=== PATIENT | male | born 1995 | race Caucasian/White ===

== ENCOUNTER 2025-11-01 21:34 | Emergency (ER) | payer OTHER, SELFPAY ==
[2025-11-01 21:35] VITALS: BP 138/89
--- NOTE | 2025-11-01 22:07 | ED.GENMED ---
History of Present Illness
<Floyd Godfrey MD, Resident - Last Filed: 11/02/25 01:17>
General
Chief Complaint: Musculo-Skeletal Complaint
Time Seen by Provider: 11/01/25 22:04
History of Present Illness
History of Present Illness:
30 yo M no significant PMH p/w focal tailbone pain for 3 weeks duration. no clear trigger. pain is exacerbated by when applying pressure to that focal point or when he sits in a weird way. otherwise, no pain. denies shooting pain down legs, focal
numbness or weakness. denies bowel/bladder dysfunction, denies saddle anesthesia.
he went to urgent care ~2 weeks ago, completed 7 days of doxycycline to no avail. he tried advil at home with minimal benefit.
no trauma, no falls. no changes to his typical routine. 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
denies any changes or blood in stool. denies any recent illnesses or sick contacts.
social hx unremarkable
Past History
<Floyd Godfrey MD, Resident - Last Filed: 11/02/25 01:17>
Past History
ED Past Medical History: None
ED Past Surgical History: Other (Mcdonough teeth removal)
Social History
Tobacco: Non-smoker
Alcohol: None
Drug: None
Personal:
Living: with family
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
Review of Systems
<Floyd Godfrey MD, Resident - Last Filed: 11/02/25 01:17>
Review of Systems
Constitutional: Reports no symptoms
EENT: Reports no symptoms
Respiratory: Reports no symptoms
Cardiac: Reports no symptoms
ABD/GI: Reports no symptoms
: Reports no symptoms
Musculoskeletal: Reports back pain
Neurological: Reports no symptoms
Phy Exam
<Floyd Godfrey MD, Resident - Last Filed: 11/02/25 01:17>
Physical Exam
Physical Exam:
VS: 138/89; HR 67; T 99.6
General: no acute distress
CV: no murmurs on my exam
Pulm: CTAB
GI: no tenderness to palpation
Back/rectal: no fluctuance, possible cyst-like mass appreciable but no drainage
Neuro: AOx3, no focal weakness
Course
<Floyd Godfrey MD, Resident - Last Filed: 11/02/25 01:17>
Orders/Labs/Results
Orders:
Orders
11/01/25 22:34
Ketorolac [Toradol] 15 mg IV NOW STA
11/01/25 22:35
CT Abd/pelvis W Iv Cont Urgent
Reason For Exam: tailbone pain
11/01/25 22:42
Complete Blood Count/With Diff Urgent
Comprehensive Metabolic Panel Urgent
11/02/25 00:50
Hydrocortisone [Hydrocortisone 1% Cream] See Dose Instructions TOPICAL NOW STA
Prednisone [Deltasone] 50 mg PO NOW STA
Abnormal Lab Results
11/01/25
22:42
Monocytes % 9.4 H %
(1.7-9.3)
11/01/25 22:42
11/01/25 22:42
Vital Signs
Initial and Last Documented VS:
Initial Vital Signs
Temp Pulse Resp BP Pulse Ox
99.6 F 67 19 138/89 98
11/01/25 21:35 11/01/25 21:35 11/01/25 21:35 11/01/25 21:35 11/01/25 21:35
Last Documented Vital Signs
Temp Pulse Resp BP Pulse Ox
99.6 F 78 20 132/79 99
11/01/25 21:35 11/02/25 00:45 11/02/25 00:45 11/02/25 00:45 11/02/25 00:45
<Erwin Avelar DO - Last Filed: 11/02/25 00:55>
Orders/Labs/Results
Orders:
Orders
11/01/25 22:34
Ketorolac [Toradol] 15 mg IV NOW STA
11/01/25 22:35
CT Abd/pelvis W Iv Cont Urgent
Reason For Exam: tailbone pain
11/01/25 22:42
Complete Blood Count/With Diff Urgent
Comprehensive Metabolic Panel Urgent
11/02/25 00:50
Hydrocortisone [Hydrocortisone 1% Cream] See Dose Instructions TOPICAL NOW STA
Prednisone [Deltasone] 50 mg PO NOW STA
Abnormal Lab Results
11/01/25
22:42
Monocytes % 9.4 H %
(1.7-9.3)
11/01/25 22:42
11/01/25 22:42
Vital Signs
Initial and Last Documented VS:
Initial Vital Signs
Temp Pulse Resp BP Pulse Ox
99.6 F 67 19 138/89 98
11/01/25 21:35 11/01/25 21:35 11/01/25 21:35 11/01/25 21:35 11/01/25 21:35
Last Documented Vital Signs
Temp Pulse Resp BP Pulse Ox
99.6 F 78 20 132/79 99
11/01/25 21:35 11/02/25 00:45 11/02/25 00:45 11/02/25 00:45 11/02/25 00:45
<Floyd Godfrey MD, Resident - Last Filed: 11/02/25 01:17>
MDM/Problems Addressed
Differential Diagnosis Includes:
pilonidal cyst, abscess, anorectal fistula, folliculitis, osteomyelitis, reactive arthritis, cauda equina/conus medullaris
MDM/Problems Addressed:
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 no infectious symptoms. no red flag symptoms.
rectal exam disclosed point tenderness and possible cyst-like mass near anorectal region but no fluctuance
Plan:
CBC
CMP
CT A/P w IV contrast
IV toradol 15mg once
Update:
CT showed no acute intra-abdominal pathology
1% hydrocortisone cream
prednisone burst 50mg x 5 days
disability counselor to use Ching for hair removal near gluteal/tailbone region
Disposition: home
<Floyd Godfrey MD, Resident - Last Filed: 11/02/25 01:17>
*Pulse Oximetry
SaO2: 98
Oxygen Mode of Delivery: Room air
<Erwin Avelar DO - Last Filed: 11/02/25 00:55>
*Radiology
Radiology exam reviewed: radiology read reviewed
*Pulse Oximetry
Patient hypoxic: no
*Critical Care Note
Total Time (30-74mins, 75-104mins- exclusive of procedures): Not Applicable
<Erwin Avelar, DO - Last Filed: 11/02/25 00:55>
Update Note
Update Note:
1 AM, update CT noted labs noted will try some anti-inflammatories and depilatory
ED Attending Note
<Floyd Godfrey MD, Resident - Last Filed: 11/02/25 01:17>
-
Portions of this chart may have been created with voice recognition software.� Occasional wrong word or��sound alike� substitutions may have occurred due to the inherent limitations of voice recognition software.
<Erwin Avelar DO - Last Filed: 11/02/25 00:55>
ED Attending Note
Patient seen and examined by attending physician: Yes
I performed a history and physical exam of patient and discussed management with resident, I reviewed resident's note and agree with documented findings and plan of care.: Yes
ED Attending Note:
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
rule out any deeper pathology
Discharge Plan
Departure
Patient Disposition: Home (Routine Discharge)
Date of Disposition: 11/02/25
Time of Disposition: 01:07
Patient with high blood pressure during this ER visit?: No
Condition: Good
Discharge Problem:
Coccyx pain
Instructions: Back Pain
Prescriptions:
New
prednisone 50 mg tablet
50 mg PO DAILY Qty: 4 0RF
No Action
albuterol sulfate 90 mcg/actuation aerosol powdr breath activated
2 inh inhalation Q4H PRN (Reason: shortness of breath or wheezing) Qty: 1 0RF
Referrals:
Shar Whitfield MD [Family Provider]
Activity Restrictions/Additional Instructions:
You presented with tailbone pain. Your CT scan of abdomen/pelvis with IV contrast was negative.
We are recommending a short course of steroid (predisone 50mg). Take 1 tablet daily for 4 more days.
You should also apply 1% topical hydrocortisone cream on the tailbone region
Consider using Ching to remove hair near the gluteal / tailbone region.
You should follow-up with your primary care within 7- 10 days.
If your pain becomes signifcantly worse or symptoms do not improve, you should seek care of present to the nearest ER.
Interventions
Interventions:
*General Assessment Last Done: 11/01/25 21:37
*Neglect/Abuse Screening Last Done: 11/01/25 21:37
*ED COVID-19 Vaccine History Last Done: 11/01/25 21:37
*ED Influenza Vaccine History Last Done: 11/01/25 21:37
[facility] Risk Assessment Tool Last Done: 11/01/25 22:30
*Risk Screen - Suicide (C-SSRS) Last Done: 11/01/25 21:37
ED-Musculoskeletal Assessment Last Done: 11/01/25 22:30
Discharge Date and Time
Print Language: SURINAMESE
[2025-11-01 22:34] VITALS: BMI 30.4
[2025-11-01 22:36] VITALS: BP 127/82
[2025-11-01] MEDS: TORADOL 15 MG IV (22:43)
[2025-11-01 22:49] LABS: Hematocrit 42.5 % (39.0-52.0); Hemoglobin 15.2 g/dL (13.0-18.0); Mean Corp Hgb Conc. 35.8 g/dL (33.0-37.0); Mean Corpuscular Volume 83.0 fL (80.0-94.0); Nucleated Red Blood Cells % 0 % (-); Platelet Count 221 10^3/uL (130-400); Red Cell Dist. Width 12.0 % (11.5-14.5)
[2025-11-01 23:02] LABS: ALT (SGPT) 32 U/L (0-50); AST (SGOT) 26 U/L (17-59); Albumin 4.6 g/dl (3.5-5.0); Alkaline Phosphatase 52 U/L (38-126); Blood Urea Nitrogen 20 mg/dl (9-20); Calcium 9.6 mg/dl (8.4-10.2); Carbon Dioxide 24 mmol/L (22-30); Chloride 107 mmol/L (98-107); Estimated Creatinine Clearance > 125 ml/min; Glucose 81 mg/dl (70-99); Potassium 3.8 mmol/L (3.5-5.1); Sodium 140 mmol/L (135-145); Total Protein 7.4 g/dl (6.3-8.2); eGFR > 60.00
[2025-11-02 00:45] VITALS: BP 132/79
[2025-11-02] MEDS: DELTASONE 50 MG PO (01:16)
[2025-11-02] MEDS: HYDROCORTISONE 1% CREAM 1 APPLIC TOPICAL (01:21)
== END 2025-11-02 01:20 | disposition home or self-care (01) ==
LOC: EMR 21:34
PROVIDERS: EMERGENCY PHYSICIAN Emergency Medicine; FAMILY PHYSICIAN Hospitalist
DX: M53.3 Sacrococcygeal disorders, not elsewhere classified (principal)
CPT/HCPCS: 99285; 96374; 74177; 80053; 85025; Q9967